=== PATIENT | female | born 1950 | race Caucasian/White ===

== ENCOUNTER 2020-01-21 01:24 | Day surgery (SDC) | payer MEDICARE, SELFPAY ==
[2020-01-16 10:26] VITALS: BMI 39.8
[2020-01-21] MEDS: LACTATED RINGERS 1,000 ML 150 ML IV CONT (09:39)
[2020-01-21 09:40] VITALS: BP 146/93; PULSE 72; RESP 16; TEMP 36.4; O2SAT 98; BMI 41.7
--- NOTE | 2020-01-21 09:53 | WPDANESEPPF ---
Anes - Initial Pre Proc Eval Procedure: Operation Date: 01/21/20 10:00 Proposed Procedures p Screening Colonoscopy - Chalino Oquendo MD Date/Time: 01/21/20 09:53 Surgeon: Chalino Oquendo MD Pre Op Diagnosis: family hx colon polyps and colon CA Patient Data Age: 69 Gender: F Height: 5 ft 6 in Weight: 117.3 kg Last Vital Signs Temp 97.6 F 01/21/20 09:40 Pulse 72 01/21/20 09:40 Resp 16 01/21/20 09:40 BP 146/93 H 01/21/20 09:40 Pulse Ox 98 01/21/20 09:40 Allergies Allergy/AdvReac Type Severity Reaction Status Date / Time povidone-iodine Allergy Intermediate Hives Verified 01/21/20 09:26 latex Allergy Unknown Hives Verified 01/21/20 09:26 Penicillins Allergy Unknown Hives Verified 01/21/20 09:26 tree nut Allergy Unknown Swelling Verified 01/21/20 09:26 of Lip/Tongue/Throat morphine AdvReac Unknown Nausea Verified 01/21/20 09:26 Home Medications Medication Instructions Recorded Confirmed Type zolpidem 10 mg PO PRN PRN 01/16/20 01/21/20 History esomeprazole magnesium [Nexium 20 mg PO DAILY 01/21/20 01/21/20 History 24HR] Patient hx anesthesia problems: none Family hx anesthesia problems: none PMFSH Past Medical History Medical History (Updated 01/21/20 @ 09:53 by Dmitry Serrano MD) Arthritis Factor 5 Leiden mutation, heterozygous GERD (gastroesophageal reflux disease) Morbid obesity Family History Family History (Updated 09/19/18 @ 09:22 by DOCTOR UNKNOWN) Mother Hypertension Family history of cardiovascular disease Father Patient's father is , Onset Age: 84 Family history of cardiac disorder Carcinoma of colon Sibling Family history of atrial fibrillation Social History Social History Smoking status: Never smoker Second hand tobacco smoke exposure: No Alcohol intake: current Anes - Eval Final PreProcedure Day of Procedure 01/21/20 09:53 Patient weight: morbidly obese Heart: regular rate and rhythm Lungs: clear to auscultation Airway: Mallampati scale class II Neurological: alert and oriented Last oral intake: >/= 8 hours ASA classification: III Emergent: no Anesthetic plan: proceed Anesthesia type and monitoring: general GIVS and standard monitoring Informed Consent: The patient's anesthetic plan and its attendant risks and benefits were discussed with the patient/family/POA. Questions were solicited and answers provided to the satisfaction of the patient/family/POA.
--- NOTE | 2020-01-21 09:59 | WPDGICN ---
Assessment and Plan Assessment and plan (1) History of colon polyps: Code(s): Z86.010 - Personal history of colonic polyps Status: Acute Assessment and Plan: Patient reports having had colon polyps in the past most recent colonoscopy 5 years ago revealed no polyps. (2) Family history of colon cancer requiring screening colonoscopy: Code(s): Z80.0 - Family history of malignant neoplasm of digestive organs Status: Acute Assessment and Plan: Patient's father and paternal uncles have had colon cancer. Screening colonoscopy is advised now and every 5 years. GI Consult Note Consult date/time: 01/21/20 09:59 HPI: Edie Carpenter is a 69 year old female Seen in evaluation at the request of Dr. Worley. Patient presents for screening colonoscopy. Patient has a history of colon polyps in the past. Family history is significant her father and uncles have with colon cancer. Patient reports that her current weight appetite bowel movements are normal. She denies abdominal pain. She denies blood in her stools. Her bowel habits are regular. Review of Systems Review of Systems: All systems reviewed & are unremarkable except as noted in HPI and below PMFSH Past Medical History Medical History Arthritis Factor 5 Leiden mutation, heterozygous GERD (gastroesophageal reflux disease) Morbid obesity Family History Family History (Updated 09/19/18 @ 09:22 by DOCTOR UNKNOWN) Mother Hypertension Family history of cardiovascular disease Father Patient's father is , Onset Age: 84 Family history of cardiac disorder Carcinoma of colon Sibling Family history of atrial fibrillation Social History Social History Smoking status: Never smoker Second hand tobacco smoke exposure: No Alcohol intake: current Meds Home Medications and Allergies Home Medications Medication Instructions Recorded Confirmed Type zolpidem 10 mg PO PRN PRN 01/16/20 01/21/20 History esomeprazole magnesium [Nexium 20 mg PO DAILY 01/21/20 01/21/20 History 24HR] Allergies Allergy/AdvReac Type Severity Reaction Status Date / Time povidone-iodine Allergy Intermediate Hives Verified 01/21/20 09:26 latex Allergy Unknown Hives Verified 01/21/20 09:26 Penicillins Allergy Unknown Hives Verified 01/21/20 09:26 tree nut Allergy Unknown Swelling Verified 01/21/20 09:26 of Lip/Tongue/Throat morphine AdvReac Unknown Nausea Verified 01/21/20 09:26 Vital Signs Vital Signs - 24 hr 01/21/20 09:40 Temperature 36.4 C Pulse Rate 72 Respiratory Rate 16 Blood Pressure 146/93 H Pulse Oximetry 98 Exam Narrative: Exam Narrative: Physical exam reveals her to be alert. Vital signs stable. HEENT exam unremarkable. Lungs are clear to auscultation and percussion. Heart is without murmur or extra sounds. Abdominal exam bowel sounds are present soft nontender with no organomegaly. Digital external rectal exam normal.
[2020-01-21 10:20] VITALS: BP 138/81; PULSE 70; RESP 18; O2SAT 100
[2020-01-21 10:30] VITALS: BP 124/78; PULSE 69; RESP 19; O2SAT 98
[2020-01-21 10:40] VITALS: BP 125/78; PULSE 58; RESP 18; O2SAT 100
== END 2020-01-21 10:55 | disposition home or self-care (01) ==
PROVIDERS: PCP Family Medicine; Visit Provider Internal Medicine Gastroenterology
PROC: 0DJD8ZZ Inspection of Lower Intestinal Tract, Via Natural or Artificial Opening Endoscopic (ICD-10-PCS; CPT 45378; principal; 2020-01-21 10:00)
DX: Z12.11 Encounter for screening for malignant neoplasm of colon (principal); K57.30 Diverticulosis of large intestine without perforation or abscess without bleeding; K64.8 Other hemorrhoids; Z86.010 Personal history of colon polyps; Z80.0 Family history of malignant neoplasm of digestive organs; K21.9 Gastro-esophageal reflux disease without esophagitis; D68.51 Activated protein C resistance; M19.90 Unspecified osteoarthritis, unspecified site; E66.01 Morbid (severe) obesity due to excess calories; Z68.41 Body mass index [BMI] 40.0-44.9, adult
CPT/HCPCS: G0105; J2704; J7120

== ENCOUNTER 2022-05-18 08:35 | Outpatient (CLI) | payer MEDICARE, SELFPAY ==
--- NOTE | ~2022-05-18 | US_ITS ---
US venous doppler [facility] DATE: 05/18/2022 09:56 INDICATION: Localized edema TECHNIQUE: Real-time and color flow imaging and Doppler analysis of the veins of the lower extremitie s COMPARISON: None FINDINGS: Visualization of the distal femoral veins and calf veins was limited due to body habitus. The greater saphenous veins are patent. No deep venous thrombosis is evident in the common femoral ve ins, proximal to mid femoral veins or popliteal veins. Bilateral popliteal cyst. Right greater saphenous vein: Proximal: No reflux; 7.2 mm diameter Mid: No reflux; 4.8 mm diameter Distal: Approximately 2 seconds reflux duration; 0.9 mm vein diameter Right lesser saphenous: Proximal: No reflux duration; 2.2 mm diameter Distal colon no reflux duration; 1.9 mm diameter Left greater saphenous: Proximal: 1.5 seconds reflux duration; 7.9 mm in diameter Mid: No reflux; 6.4 mm vein diameter Distal: No reflux; 2.7 mm vein diameter Left lesser saphenous: Proximal: No reflux; 3.0 mm vein diameter Distal: No reflux duration; 3.5 mm in diameter IMPRESSION: Limited visualization of the distal femoral and calf veins due to body habitus; no deep v enous thrombosis is detected otherwise Bilateral popliteal cysts Approximately 2 sections reflux duration in distal greater saphenous vein Approximately 1.5 seconds reflux duration in proximal left greater saphenous vein Reviewed, dictated and finalized at [facility]. Reviewed, dictated and finalized at [facility]. IMPRESSION: Limited visualization of the distal femoral and calf veins due to b mariya habitus; no deep venous thrombosis is detected otherwise Bilateral popliteal cysts Approximately 2 sections reflux duration in distal greater saphenous vein Approximately 1.5 seconds reflux duration in proximal left greater saphenous ve in
== END 2022-05-18 08:36 | disposition home or self-care (01) ==
LOC: ANHIMG 08:38
PROVIDERS: PCP Family Medicine; Visit Provider Nurse Practitioner Family
DX: R60.0 Localized edema (principal); I87.2 Venous insufficiency (chronic) (peripheral); M71.21 Synovial cyst of popliteal space [Baker], right knee; M71.22 Synovial cyst of popliteal space [Baker], left knee
CPT/HCPCS: 93970

== ENCOUNTER 2022-06-27 10:07 | Emergency (ER) | payer MEDICARE, SELFPAY ==
[2022-06-27 10:24] VITALS: BP 130/100; PULSE 98; RESP 22; TEMP 36.4; O2SAT 99
--- NOTE | 2022-06-27 10:25 | ECG_ITS ---
Measurements Intervals [place] Rate: 97 P: 56 OK: 148 QRS: 90 QRSD: 77 T: -76 QT: 377 QTc: 481 Interpretive Statements SINUS RHYTHM POSSIBLE RIGHT VENTRICULAR CONDUCTION DELAY [RSR (QR) IN V1/V2] MODERATE T-WAVE ABNORMALITY, CONSIDER ANTEROLATERAL ISCHEMIA [-0.1+ mV T WAVE IN V3-V6] MODERATE T-WAVE ABNORMALITY, CONSIDER INFERIOR ISCHEMIA [-0.1+ mV T WAVE IN II/aVF] ABNORMAL ECG Electronically Signed On 06-29-2022 9:32:44 CDT by Silas Slade M.D.
--- NOTE | 2022-06-27 10:44 | ED.CHESTPAIN ---
HPI - Chest Pain General Chief Complaint: Chest Pain Stated Complaint: shortness of breath, chest pain Time Seen by Provider: 06/27/22 10:26 Source: patient, family, RN notes reviewed and old records reviewed Mode of arrival: wheelchair (Since arrival) Limitations: no limitations History of Present Illness HPI narrative: 71-year-old female who presents to [facility], accompanied by sister who just returned from vacation last night, with complaints of increasing shortness of breath for the past week with increase in her symptoms since yesterday. Patient reports that she has chest pain to left chest region under her left breast with lightheadedness when sitting up and sweaty. Patient states that she has essentially been lying in bed for the past week and she has not eaten any thing since Sunday. Patient reports that she has Factor V Leiden, has never had blood clot but carries gene. Patient reposts that she is nauseated and also diaphoretic when sitting patient up to listen to lungs posteriorly.Patient has chronic lymphedema to lower extremities and noted pedal edema. MD complaint: chest pain and other (dyspnea,) Onset (ago): week(s) (1) Timing of current episode: other (symptoms increased since yesterday) Onset: other Pain location: left chest Exacerbating factors: exertion Treatment prior to arrival: none Risk Factors Pulmonary embolism risk factors: clotting disorder, immobilization and morbid obesity Related Data Home Medications Medication Instructions Recorded Confirmed esomeprazole magnesium 20 mg 20 mg PO DAILY 01/21/20 05/02/22 capsule,delayed release (Nexium 24HR) Allergies Allergy/AdvReac Type Severity Reaction Status Date / Time povidone-iodine Allergy Intermediate Hives Verified 06/27/22 11:27 latex Allergy Unknown Hives Verified 06/27/22 11:27 Penicillins Allergy Unknown Hives Verified 06/27/22 11:27 tree nut Allergy Unknown Swelling Verified 06/27/22 11:27 of Lip/Tongue/Throat morphine AdvReac Unknown Nausea Verified 06/27/22 11:27 Review of Systems Review of Systems: CONSTITUTIONAL: Denies fever, chills, or sweats. EYES: Denies visual changes, redness, or discharge. ENT: Denies rhinorrhea, congestion, sore throat, or otalgia. CARDIOVASCULAR: Positive for chest pain, palpitations, or edema. RESPIRATORY: positive for cough or dyspnea. GASTROINTESTINAL: Denies abdominal pain, positive for nausea,no vomiting, or diarrhea. GENITOURINARY: Denies dysuria or hematuria. SKIN: Denies rash or itching. MUSCULOSKELETAL: Denies back pain,positive for bilateral knee joint pain, or myalgia. NEUROLOGIC: Denies headache, numbness, or weakness. PSYCHIATRIC: Denies anxiety or depression. 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 report Stomach ulcer Venous insufficiency Surgical History Surgical History S/P ACL reconstruction Left ACL reconstruction S/P ankle ligament repair Left Ankle (per patient) Family History Family History Mother Hypertension Family history of cardiovascular disease Father Patient's father is , Onset Age: 84 Family history of cardiac disorder
== END 2022-06-27 10:51 | disposition short-term general hospital (02) ==
PROVIDERS: Emergency Provider Registered Nurse
DX: R07.9 Chest pain, unspecified (principal); R06.02 Shortness of breath; R94.31 Abnormal electrocardiogram [ECG] [EKG]; K21.9 Gastro-esophageal reflux disease without esophagitis; E66.01 Morbid (severe) obesity due to excess calories; Z68.41 Body mass index [BMI] 40.0-44.9, adult; M19.90 Unspecified osteoarthritis, unspecified site; D68.51 Activated protein C resistance
CPT/HCPCS: 93005; 99213; G0463

== ENCOUNTER 2022-06-27 11:17 | Emergency (ER) | payer MEDICARE, SELFPAY ==
[2022-06-27] VITALS (35 sets, daily range): BP systolic 105–155; BP diastolic 79–130; PULSE 90–106; RESP 14–29; TEMP 36.5; O2SAT 84–100
--- NOTE | 2022-06-27 | ECHO_ITS ---
Patient Info Name: Edie Carpenter Age: 71 years : 1950 Gender: Female Ht: 66 in Wt: 260 lbs BSA: 2.40 m2 HR: 98 bpm BP: 119 / 83 mmHg Heart Rhythm: Sinus Rhythm Technical Quality: Fair Exam Date: 06/27/2022 3:20 PM Exam Location: [facility] Card Pulmonary Patient Status: Emergency Admit Date: 06/27/2022 Staff Ordering Physician: Elke Mejia MD Program Aide: Rhonda Kemp RDCS Attending Provider: Elke Mejia MD Referring Physician: Roberto HENDRIX; Exam Type: CA echo dop color flow w con Study Info Indications - DVT Complete two-dimensional, color flow and Doppler transthoracic echocardiogram is performed with contrast to opacify the left ventricle and to improve the deliniation of the left ventricle endocardial borders. Contrast/Agitated Saline Contrast/Ag. Saline: Definity Amount: 3.00 ml Administered By: Rhonda Kemp RDCS Existing IV Access: Yes IV Access Condition: patent with no signs of infiltration Summary 1. Left ventricular chamber dimension is normal. 2. Left ventricular systolic function is normal, estimated at 65-70%. 3. There is mildly increased left ventricular wall thickness. 4. The left ventricular diastolic function is abnormal. 5. 'D-shaped' septum in both systole and diastole consistent with right ventricular volume and pressure overload. 6. Right ventricular chamber dimension is severely enlarged. 7. Right ventricular systolic function is reduced. 8. Right atrial chamber dimension is mildly enlarged. 9. There is mild aortic valve regurgitation. 10. There is mild mitral valve regurgitation. 11. There is mild tricuspid valve regurgitation. 12. Severe pulmonary hypertension, estimated pulmonary arterial systolic pressure is 76 mmHg. 13. There is mild pulmonic regurgitation. 14. There is small pericardial effusion. Left Ventricle Left ventricular chamber dimension is normal. Left ventricular systolic function is normal, estimated at 65-70%. There is mildly increased left ventricular wall thickness. The left ventricular diastolic function is abnormal. 'D-shaped' septum in both systole and diastole consistent with right ventricular volume and pressure overload. Right Ventricle Right ventricular chamber dimension is severely enlarged. Right ventricular systolic function is reduced. Left Atria Left atrial chamber dimension is normal. Right Atria Right atrial chamber dimension is mildly enlarged. Atrial Septum Intact interatrial septum visualized by color flow imaging. Aortic Valve The aortic valve is trileaflet. There is mild aortic valve sclerosis. There is mild aortic valve stenosis with a peak velocity of 113.67 cm/s, mean gradient of 2 mmHg, and aortic valve area of 2.43 cm2. There is mild aortic valve regurgitation. Pulmonic Valve The pulmonic valve is normal. There is no pulmonic valve stenosis. There is mild pulmonic regurgitation. Mitral Valve The mitral valve has normal leaflets. There is no mitral valve stenosis. There is mild mitral valve regurgitation. Tricuspid Valve The tricuspid valve leaflets are normal. There is no significant tricuspid valve stenosis. There is mild tricuspid valve regurgitation. Severe pulmonary hypertension, estimated pulmonary arterial systolic pressure is 76 mmHg. Pericardium/Pleural The pericardium appears normal. There is small pericardial effusion. Inferior Vena Cava Normal in
--- NOTE | ~2022-06-27 | CT_ITS ---
EXAMINATION: CTA chest PE protocol DATE: 06/27/2022 13:07 CDT INDICATION: Shortness of breath and chest pain. Elevated d-dimer. TECHNIQUE: Computed tomographic angiography (CTA) of the chest was performed with 100 mL Omnipaque-35 0 intravenous contrast. The dose-length product was 698.35 mGy-cm. Maximum intensity projection 3D-re constructions of the aorta and other arteries were constructed by the technologist on a separate work station. COMPARISON: Chest dated 06/27/2022. FINDINGS: Study is technically adequate. There is large clot burden with pulmonary emboli involving t he main pulmonary arteries as well is bilateral segmental and subsegmental pulmonary arteries. Border line heart size. No significant pleural or pericardial effusion. Moderate size hiatal hernia. No thor acic lymphadenopathy. There is atherosclerosis of the aorta without aneurysm or dissection. No focal airspace disease. No pneumothorax. No endobronchial lesions. There is right upper lobe atelectasis. M ild thoracic spondylosis. IMPRESSION: 1. Bilateral pulmonary embolism with large clot burden involving the main pulmonary arteries as well as bilateral segmental and subsegmental pulmonary arteries. Dr. Charanjit Garcia discussed with Dr. Elke Mejia MD at 06/27/2022 13:08 CDT. Reviewed, dictated and finalized at [facility]. IMPRESSION: 1. Bilateral pulmonary embolism with large clot burden involving the main pulmo nary arteries as well as bilateral segmental and subsegmental pulmonary arterie s. Dr. Charanjit Garcia discussed with Dr. Elke Mejia MD at 06/27/2022 13:08 CDT.
--- NOTE | ~2022-06-27 | US_ITS ---
EXAMINATION:US venous doppler LE BI INDICATION:Evaluate for DVT TECHNIQUE: Multiple grayscale, color flow and Doppler images of the right and left lower extremity de ep venous systems were obtained and reviewed. COMPARISON:No prior studies for comparison. FINDINGS: The common femoral, superficial femoral and popliteal veins demonstrate normal respiratory variation, augmentation and compressibility. Color flow is also seen within the posterior tibial, pe roneal, greater saphenous and profunda veins. IMPRESSION: 1: No lower extremity deep venous thrombosis. Reviewed, dictated and finalized at location [facility].
--- NOTE | ~2022-06-27 | XR_ITS ---
EXAMINATION: XR chest 2V 06/27/2022 11:49 INDICATION: Extremely shortness of breath PROCEDURE: 2 view chest COMPARISON: 09/20/2018 FINDINGS: The lungs are clear. The cardiomediastinal silhouette is within normal limits. There are no pleural effusions. There is no pneumothorax suspected. There is chronic atelectasis in the right midlung. IMPRESSION: 1: NO ACUTE CARDIOPULMONARY DISEASE. Reviewed, dictated and finalized at location [facility].
--- NOTE | 2022-06-27 11:19 | ECG_ITS ---
Measurements Intervals [place] Rate: 102 P: 50 MS: 148 QRS: 148 QRSD: 76 T: -76 QT: 352 QTc: 459 Interpretive Statements SINUS TACHYCARDIA INDETERMINATE AXIS PATTERN CONSISTENT WITH PULMONARY DISEASE MODERATE T-WAVE ABNORMALITY, CONSIDER ANTERIOR ISCHEMIA [-0.1+ mV T WAVE IN V3/V4] MODERATE T-WAVE ABNORMALITY, CONSIDER INFERIOR ISCHEMIA [-0.1+ mV T WAVE IN II/aVF] ABNORMAL ECG NO PREVIOUS ECG AVAILABLE FOR COMPARISON Electronically Signed On 06-27-2022 12:11:42 CDT by Silas Slade M.D.
--- NOTE | 2022-06-27 11:34 | ED.SOB ---
HPI - SOB/Dyspnea General Chief Complaint: Shortness of Breath/Dyspnea Stated Complaint: sob,cp Time Seen by Provider: 06/27/22 11:34 History of Present Illness HPI Narrative: The patient is a 71-year-old female with a history of acid reflux, lower extremity lymphedema, factor V Leiden deficiency presenting to the emergency department for evaluation of chest pain and shortness of breath. Patient states that she has been having chest pain and shortness of breath worsening over the past week. Patient does report recent car travel to [facility] but denies any recent surgery or immobility. She denies history of blood clots in the past. Patient states she and her sister have a history of factor V Leiden deficiency, she states she is not on any current anticoagulation but did take 2 baby aspirin daily over the past 4 days. Related Data Home Medications Medication Instructions Recorded Confirmed esomeprazole magnesium 20 mg 20 mg PO DAILY 01/21/20 05/02/22 capsule,delayed release (Nexium 24HR) Allergies Allergy/AdvReac Type Severity Reaction Status Date / Time povidone-iodine Allergy Intermediate Hives Verified 06/27/22 11:27 latex Allergy Unknown Hives Verified 06/27/22 11:27 Penicillins Allergy Unknown Hives Verified 06/27/22 11:27 tree nut Allergy Unknown Swelling Verified 06/27/22 11:27 of Lip/Tongue/Throat morphine AdvReac Unknown Nausea Verified 06/27/22 11:27 Review of Systems Review of Systems: CONSTITUTIONAL: Denies fever, chills, or sweats. EYES: Denies visual changes, redness, or discharge. ENT: Denies rhinorrhea, congestion, sore throat, or otalgia. CARDIOVASCULAR: Reports left-sided chest pain without palpitations, reports chronic lymphedema RESPIRATORY: Denies cough, reports shortness of breath GASTROINTESTINAL: Denies abdominal pain, reports nausea GENITOURINARY: Denies dysuria or hematuria. SKIN: Denies rash or itching. MUSCULOSKELETAL: Denies back pain, joint pain, or myalgia. NEUROLOGIC: Denies headache, numbness, or weakness. 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 report Stomach ulcer Venous insufficiency Surgical History Surgical History S/P ACL reconstruction Left ACL reconstruction S/P ankle ligament repair Left Ankle (per patient) Family History Family History Mother Hypertension Family history of cardiovascular disease Father Patient's father is , Onset Age: 84 Family history of cardiac disorder Carcinoma of colon Sibling Family history of atrial fibrillation Other Arthritis Renal cancer Social History Social History (Updated 06/27/22 @ 19:34 by Elke Stauffer NP) Smoking status: Never smoker Second hand tobacco smoke exposure: No Alcohol intake: current Substance use type: does not use Gender identity (if verbalized by the patient): Female Exam Narrative: GENERAL: Awake, alert, conversant HEAD: Normocephalic, atraumatic. EYES: PERRLA and EOMI. ENT: Nares clear, no rhinorrhea or epistaxis. Mucous membranes moist. NECK: Supple. CHEST: No respiratory distress, breathing even and non labored HEART: Tachycardic rate, sinus rhythm ABDOMEN:Non distended, non tender EXT
[2022-06-27 11:39] LABS: Basophils Percent Auto 0.5 % (0.2-1.2); Eosinophils Percent Auto 0.4 % (0-4.4); Hematocrit 49.5 % (37.0-47.0); Immature Granulocyte Absolute 0.02 K/mm3 (0.00-0.031); Immature Granulocyte Percent A 0.3 % (0-0.5); Immature Platelet Fraction Pct 1.9 % (0.9-11.2); Lymphocytes Absolute Auto 2.43 K/mm3 (0.9-3.2); Mean Corpuscular HGB Conc 32.3 g/dl (32-36); Mean Corpuscular Hemoglobin 29.2 pg (26-34); Mean Corpuscular Volume 90.3 fl (80-100); Mean Platelet Volume 9.1 fl (7.4-10.4); Monocytes Absolute Auto 0.4 K/mm3 (0.1-0.6); Monocytes Percent Auto 5.6 % (2.6-8.5); Neutrophils Absolute Auto 4.9 K/mm3 (1.3-6.7); Neutrophils Percent Auto 62.2 % (45.5-73.1); Platelet Count Result 150 k/mm3 (150-375); Red Blood Count 5.48 M/mm3 (4.2-5.4); Red Cell Distribution Width 13.5 % (11.5-14.5); White Blood Count 7.8 K/mm3 (4.5-10.0)
[2022-06-27 11:48] LABS: Alanine Aminotransferase 18 U/L (6-35); Albumin Level 4.2 g/dL (3.5-5.1); Alkaline Phosphatase 90 U/L (38-126); Anion Gap 9 mmol/L (8-16); Aspartate Amino Transferase 22 U/L (14-36); Bilirubin,Total 0.7 mg/dL (0.2-1.3); Blood Urea Nitrogen 13 mg/dL (7-17); Calcium 8.9 mg/dL (8.4-10.2); Carbon Dioxide 27 mmol/L (22-30); Chloride 103 mmol/L (98-107); Estimated CRCL calculation 56 ml/min; Estimated Glomerular Filt Rate 49; Glucose 129 mg/dL (65-110); Lipase 31 U/L (23-300); Potassium 3.8 mmol/L (3.4-5.0); Sodium 139 mmol/L (137-145)
[2022-06-27 11:50] LABS: Prothrombin Time 13.2 Seconds (11.1-14.7)
[2022-06-27 11:51] LABS: Partial Thromboplastin Time 27.5 SECONDS (22.3-36.8)
[2022-06-27] MEDS: ASPIRIN 325 MG TABLET PO (11:56)
[2022-06-27] MEDS: ONDANSETRON INJ 4 MG/2 ML VIAL IV PUSH (11:57)
[2022-06-27] MEDS: SODIUM CHLORIDE 0.9% IV 500 ML 999 ML IV CONT (11:59)
[2022-06-27 12:07] LABS: Troponin I 0.084 ng/mL (0.000-0.034)
[2022-06-27 12:20] LABS: D Dimer 6.26 ug/mL (<0.48)
[2022-06-27 12:43] LABS: NT Pro B Type Natriuretic Pept 11500 pg/mL (5-100)
[2022-06-27 12:48] LABS: Alveolar/Arterial O2 Gradient 46.3 mmHg; Base Excess ABG -3.1 mEq/l (+/-2.0); Carboxyhemoglobin 0.5 % THb (0-2.0); Fractional Inspired Oxygen 21 %; HCO3 ABG 21.2 mEq/l (22.0-26.0); Methemoglobin ABG 0.2 %THb (0-1.5); Oxygen Content ABG 19.5 %vol (16.0-22.0); Oxyhemoglobin 88.6 % THb (90.0-100.0); PCO2 ABG 36.1 mmHg (35.0-45.0); PO2 ABG 60.2 mmHg (80.0-100.0); PO2 FiO2 Ratio Arterial Blood 2.87 %; Reduced Hemoglobin 10.7 %THb (0-5.0); Total Hemoglobin 15.7 g/dL (12.0-18.0); pH ABG 7.387 (7.350-7.450)
[2022-06-27 12:49] LABS: Device ROOM AIR; Modified Allen's Test Pass; Site Drawn LEFT RADIAL
[2022-06-27] MEDS: HEPARIN SOD/D5W 100 UNITS/ML 25,000 UNITS/250 ML BAG 15 UNITS IV CONT (14:36)
[2022-06-27] MEDS: HEPARIN SODIUM 5,000 UNITS/ML VIAL 6500 UNITS IV PUSH (14:36)
[2022-06-27] MEDS: PERFLUTREN LIPID MICROSPHERES 1.5 ML VIAL DILUTED TO 10 ML TOTAL VOLUME IV PUSH (15:49)
--- NOTE | 2022-06-27 15:49 | IVDEFINITY ---
Prior to administration of IV Definity the patient was educated on the risks and benefits of the imaging enhancing agent including potential adverse side effects. The patient verbalized understanding. Allergies were verified. No exclusion criteria were identified and at least one of the following inclusion criteria were met: 1) physician request, 2) patient technically difficult to image (per the [place] [employer] guidelines of two or more segments not discernable within the apical view), or 3) questionable left ventricular function. ?
[2022-06-27 16:38] LABS: SARS-CoV-2 RNA PCR Negative
[2022-06-27 18:53] LABS: Troponin I 0.062 ng/mL (0.000-0.034)
--- NOTE | 2022-06-27 19:25 | PC.NURSE ---
[facility]
[2022-06-27 19:33] LABS: Partial Thromboplastin Time > 200.0 SECONDS (22.3-36.8)
--- NOTE | 2022-06-27 19:41 | PC.NURSE ---
As requested, I Informed Ros at the access center that the patient has left [facility].
== END 2022-06-27 19:32 | disposition short-term general hospital (02) ==
PROVIDERS: Emergency Provider Emergency Medicine
DX: I26.99 Other pulmonary embolism without acute cor pulmonale (principal); I27.21 Secondary pulmonary arterial hypertension; I50.9 Heart failure, unspecified; R79.89 Other specified abnormal findings of blood chemistry; Z20.822 Contact with and (suspected) exposure to COVID-19; K21.9 Gastro-esophageal reflux disease without esophagitis; I89.0 Lymphedema, not elsewhere classified; D68.51 Activated protein C resistance; M17.10 Unilateral primary osteoarthritis, unspecified knee; M19.019 Primary osteoarthritis, unspecified shoulder; Z86.010 Personal history of colon polyps; E66.01 Morbid (severe) obesity due to excess calories; Z68.41 Body mass index [BMI] 40.0-44.9, adult; I87.2 Venous insufficiency (chronic) (peripheral); R00.0 Tachycardia, unspecified; R94.31 Abnormal electrocardiogram [ECG] [EKG]
CPT/HCPCS: 36415; 36600; 71046; 71275; 80053; 82375; 82805; 83050; 83690; 83880; 84484; 85025; 85055; 85380; 85610; 85730; 93005; 93970; 96361; 96365; 96366; 96368; 96375; 99291; A9270; C8929; C9803; J1644; J2405; J7040; Q9957; Q9967; U0003; U0005

== ENCOUNTER 2022-09-28 14:22 | Emergency (ER) | payer MEDICARE, SELFPAY ==
[2022-09-28 14:33] VITALS: BP 141/92; PULSE 109; RESP 20; TEMP 36.4; O2SAT 98
--- NOTE | 2022-09-28 14:37 | ED.UPPEXIN ---
HPI - Extremity Injury (Upper) General Chief Complaint: Extremity Injury, Upper Stated Complaint: lt arm injury Time Seen by Provider: 09/28/22 14:37 Source: patient, RN notes reviewed and old records reviewed Mode of arrival: ambulatory Limitations: no limitations History of Present Illness HPI narrative: 71 year old female who presents to express care with complaints of increasing discomfort to her left shoulder especially with any movement. Patient reports that she has been keeping her left arm elevated with a pillow which does seem to help the pain. 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 Patient has pain to her left shoulder which radiates down her upper arm to her elbow with increase with any any use. Patient requesting sling for some support but cautioned patient only to use at intermittent intervals till seen by ortho to prevent frozen shoulder. Patient is on blood thinner from previous PE and Factor 5 can not take NSAIDS. Handedness: left Severity scale (1-10): 3 Exacerbating factors: movement of extremity Treatments prior to arrival: other (rest, heat and keeping elevated) Related Data Home Medications Medication Instructions Recorded Confirmed esomeprazole magnesium 20 mg 20 mg PO DAILY 01/21/20 09/28/22 capsule,delayed release (Nexium 24HR) Allergies Allergy/AdvReac Type Severity Reaction Status Date / Time povidone-iodine Allergy Intermediate Hives Verified 09/28/22 14:30 latex Allergy Unknown Hives Verified 09/28/22 14:30 Penicillins Allergy Unknown Hives Verified 09/28/22 14:30 tree nut Allergy Unknown Swelling Verified 09/28/22 14:30 of Lip/Tongue/Throat morphine AdvReac Unknown Nausea Verified 09/28/22 14:30 Review of Systems Review of Systems: CONSTITUTIONAL: Denies fever, chills, or sweats. CARDIOVASCULAR: Denies chest pain, palpitations, chronic lower extremity lymph edema RESPIRATORY: Denies cough or any dyspnea. SKIN: Denies rash or itching. Denies lacerations or abrasions MUSCULOSKELETAL: Reports increasing pain to left shoulder wih radiation to back of upper arm to her elbow NEUROLOGIC: Denies numbness, or weakness. All systems reviewed & are unremarkable except as noted in HPI and below PMFSH Past Medical History Medical History Ankle fracture Ankle pain Arthritis BMI greater than 40 Chest wall contusion Degenerative joint disease of knee DJD of left shoulder DJD of shoulder Encounter for other screening for malignant neoplasm of breast Esophageal reflux Factor 5 Leiden mutation, heterozygous Family history of colon cancer requiring screening colonoscopy GERD (gastroesophageal reflux disease) History of adverse reaction to anesthesia History of colon polyps Insomnia Lower extremity edema Morbid obesity Nausea & vomiting Pes planus of both feet Right fibular fracture Right knee pain Rotator cuff tear Bilateral shoulders per pt. report Stomach ulcer Venous insufficiency Surgical History Surgical History S/P ACL reconstruction Left ACL reconstruction S/P ankle ligament repair Left Ankle (per patient) Family History Family History Mother Hypertension Family history of cardiovascular disease Father Patient's father is , Onset Age: 84 Family history of cardiac disorder Carcinoma of colon Sibling Family history of atrial fibrillation Other Arthritis Renal cancer Social History Social History Smoking status: Never smoker Second hand tobacco smoke exposure: No Alcohol intake: current Substance use type: does not use Gender identity (if verbalized by the patient): Female Comments At time of signature, agree with nursing pas
== END 2022-09-28 15:09 | disposition home or self-care (01) ==
PROVIDERS: Emergency Provider Registered Nurse; PCP Family Medicine
DX: M25.512 Pain in left shoulder (principal); K21.9 Gastro-esophageal reflux disease without esophagitis; E66.01 Morbid (severe) obesity due to excess calories; Z68.41 Body mass index [BMI] 40.0-44.9, adult; M19.012 Primary osteoarthritis, left shoulder; D68.51 Activated protein C resistance
CPT/HCPCS: 99213; A4565; G0463

== ENCOUNTER 2022-10-24 12:00 | Outpatient (RCR) | payer MEDICARE, SELFPAY ==
--- NOTE | 2022-09-14 11:58 | PTOPEVAL1 ---
Assessment and note entered by Riya Vanessa, PT Evaluation Information Assessment Status Evaluation Diagnosis B LE lymphedema Onset November 2021 Subjective Information pt reports always have had muscular legs, due to being active, but with covid and decreased activity have gained about 60# in the past year and not doing activity for fitness; seeing ortho dr about knee pain and L shoulder pain--plans for L total shoulder replacement and both knees; she is wanting to have L shoulder replaced first, then do the knees; limited walking 15-20 minutes due to knee pain and SOB; Reported Pain Level Pain Score Self Report Additional Pain Score Comments pain range in legs 3-6/10: R > L pain; both knees hurt; reported tolerance of standing/walking 15- 20 min then have to sit down Assessment PT Clinical Summary Argenis has the diagnosis of B LE lymphedema. Her medical history includes multiple LE surgeries and fractures, with venous insufficiency and recent aortic and cardiac emboli with surgical removal. She is on blood thinners. Also has knee arthritis and is planning for TKR in the future. With the evaluation, she has a combination of lipedema-lymphedema over R and L legs, with increased adipose tissue over lateral hips and thighs, dorsum of feet swelling; there is not any fibrotic tissue over her legs and skin integrity is good. Skilled PT services are indicated for lymphedema treatment to both legs: compression reduction garments, manual lymph drainage, education for self care, self MLD, home compression pump, and recommendation for compression garments for her to obtain for chemical cell changer care of her edema. Plan of Care Interventions Intermittent Compression,Lymphedema Compression Pump ,Manual Lymph Drainage,Patient/Caregiver Education, Therapeutic Activities PT Services Indicated Yes Treatment Frequency and 2-3 x/wk for 6 weeks Duration These treatments will address the objective and functional deficits as defined above. The patient will be advanced safely and appropriately in order for the patient to progress towards his/her prior level of function. Additional exercises will be introduced and as well as a comprehensive home exercise program upon discharge, if needed, ?to ensure carryover of functional gains achieved in the clinic. This treatment plan has been reviewed and agreement upon by the patient.
--- NOTE | 2022-10-25 16:10 | PTOPDC ---
Addendum entered by Riya Vanessa, PT 10/26/22 08:27: Ms. Carpenter continues to have truncal edema and would benefit from a [employer] Intermittent Compression pump to assist with managing her trunk and LE lymphedema. She has been motivated and following lymphedema instructions and care, but continues to have trunk and LE edema. Original Note: Assessment and note entered by Riya Vanessa, PT Evaluation Information Assessment Status Discharge - Pt Not Present Diagnosis B LE lymphedema Onset November 2021 Subjective Information pt reports she is going out of state until December. Assessment PT Clinical Summary Argenis has received 9 PT sessions, from September 14 to October 24 for B LE lymphedema. The circumferential measurements of her legs have decreased since the initial evaluation, R by 40.6 cm and L by 20 cm. She has compression garments for R and L LE: Mediven plus, 20-30 mmHg calf high garments, size , standard length with closed toes and silicone band top. And Solidea active massage long leggings, size XXXL. She has just received the garments and is indep with donning/doffing and wearing schedule. She also has the reduction kit that she can use at night, with sleeping to manage her lymphedema. Education has been completed for self manual lymph drainage, LE exercises, elevation and self care of her lymphedema. She would benefit from a home intermittent compression pump to help manage her chronic condition. Discharge PT services.
--- NOTE | 2022-11-07 12:50 | PCPTNOTE ---
LATE entry note: on 10-19-22: during PT session, Mrs. Carpenter had a Tactile basic, Entre pump demo for her LE's, 20 minutes at 40 mmHg to her legs. Her truncal measurement: pre op 140 cm and post op 142.5 cm. It is recommended that she receive the home intermittent compression pump with the truncal component to address her truncal edema and facilitate the lymph flow with gentle pressure to her LE's and trunk.
== END 2022-10-26 08:31 | disposition home or self-care (01) ==
LOC: ANHPT 12:00
PROVIDERS: PCP Family Medicine; Visit Provider Nurse Practitioner Family
DX: R60.0 Localized edema (principal)
CPT/HCPCS: 97016; 97140; 97161

== ENCOUNTER 2023-01-15 06:59 | Outpatient (CLI) | payer MEDICARE, SELFPAY ==
--- NOTE | ~2023-01-15 | CT_ITS ---
EXAMINATION: CTA chest PE protocol DATE: 01/15/2023 07:24 INDICATION: Pulmonary embolism follow-up TECHNIQUE: Computed tomography angiography (CTA) of the chest was performed with 100 mL Omnipaque-350 intravenous contrast timed to evaluate the pulmonary arteries. Coronal maximum intensity projection 3D-reconstructions were created by the technologist. Automated exposure control and iterative reconst ruction technique were employed. Exam dose: 544.66 mGy-cm total exam DLP. COMPARISON: 06/27/2022 CT pulmonary scan FINDINGS: Examination is limited due to motion and suboptimal contrast opacification of the pulmonary arteries. No apparent pulmonary artery embolism. Cardiomegaly. Coronary atherosclerosis. Thoracic aortic arch calcification. No thoracic aortic aneury sm or dissection. No hilar or mediastinal mass lesion or lymphadenopathy. No pericardial or pleural effusion. Mild discoid atelectasis or scarring, right upper and lower lobes. No pulmonary consolidation or pulm onary mass lesion is evident. [id number] sliding hiatal hernia. Normal morphology of the adrenal glands. Diffuse idiopathic skeletal hyperostosis of the thoracic spine. No suspicious osteolytic or osteoblas tic lesions are noted. IMPRESSION: Limited examination; no apparent pulmonary embolism; resolution of extensive pulmonary e mbolism and right heart strain since 06/27/2022 Reviewed, dictated and finalized at [facility]. Reviewed, dictated and finalized at [facility]. RVISOR BENZENE REFINING IMPRESSION: Limited examination; no apparent pulmonary embolism; resolution of extensive pulmonary embolism and right heart strain since 06/27/2022
== END 2023-01-15 07:00 | disposition home or self-care (01) ==
PROVIDERS: PCP Family Medicine; Visit Provider Family Medicine
DX: I26.99 Other pulmonary embolism without acute cor pulmonale (principal)
CPT/HCPCS: 71275; Q9967

== ENCOUNTER 2023-05-18 00:15 | Day surgery (SDC) | payer MEDICARE, SELFPAY ==
--- NOTE | 2023-05-09 12:14 | PC.NURSE ---
Report to the Outpatient Waiting Room, entrance under the green pavilion located off [facility], at time _1000 on date __05/18/23 . Planned Procedure Time: __1200 . Time changes happen often and if your time is changed the preop area will call you the afternoon before. - You and your visitor will be asked to self-screen and do not enter if you have any COVID symptoms. - A mask is optional within the hospital at this time. Patients may have clear liquids (water, carbonated beverages, clear teas, apple juice) until 3 hours prior to surgery with a maximum of 20 ounces. - No food from midnight until time of surgery - Infants may have breast milk until 4 hours before surgery, formula 6 hours prior to surgery. - Children will be allowed to drink immediately following surgery. If applicable, please bring a bottle or sippy cup to assist with drinking. Juice, water, soda, and popsicles are readily available. For infants on formula, please bring formula the day of surgery. Pacifiers are allowed. Take the following medications with a SIP of water the morning of surgery: ___NONE DO NOT STOP ANY OF YOUR OTHER PRESCRIPTION MEDICATIONS PRIOR TO SURGERY ?EXCEPT THE FOLLOWING Medications to discontinue per physician XARELTO PER DR LARSON- HAS APPT 05/10/23 WITH HIM. ALL VITAMINS 3 DAYS PRE OP.LAST DOSE 05/16/23 Please no make-up, nail syrian, hairspray, perfume, deodorant, or body powder the day of surgery. No jewelry (including any body piercings) or valuables the day of surgery, leave them at home. Please take a shower or bath the night before, or the morning of, surgery with an antibacterial soap. Wear comfortable, loose fitting clothing. Children are encouraged to wear pajamas. - Jewelry must be removed prior to entering the operating room. Rings and piercings that are not removed may be cut off. - The hospital will not accept responsibility for valuables. - Please leave all valuables, including medications, at home the day of surgery. If you are going home after surgery, a licensed concrete mixer truck driver must drive you home. - NO public transportation without another adult if you receive anesthesia. - We recommend that an adult stay with you for 24 hours following discharge. - We also recommend that you do not drive, make important decision, drink alcoholic beverages, or take any drugs that were not prescribed by your health care provider for at least 24 hours after your discharge time. For Pediatric surgeries, we recommend two adults accompany the child home. Follow any additional instructions given to you from your surgeon. If you or anyone in your household have experienced Covid symptoms in the past week, please notify your surgeon or the nurse liaison at the phone number below for possible testing. Telephone instructions given to __PATIENT and asked if any additional questions and then verbalized understanding. Patient advised to call surgeon office or pre surgery nurse liaison [phone] if any additional questions.
[2023-05-09 12:21] VITALS: BMI 39.1
[2023-05-18] VITALS (11 sets, daily range): BP systolic 115–153; BP diastolic 52–93; PULSE 84–90; RESP 12–16; TEMP 36.6–36.7; O2SAT 92–100
--- NOTE | 2023-05-18 09:56 | WPDANESEPPF ---
Anes - Initial Pre Proc Eval Procedure: Operation Date: 05/18/23 12:00 Proposed Procedures p Left Shoulder Arthroscopic Debridement, Biceps Tenotomy, Subacromial Decompression - Willy León MD Date/Time: 05/18/23 09:56 Surgeon: Willy León MD Pre Op Diagnosis: left rotator cuff arthropathy Patient Data Age: 72 Gender: F Height: 1.7 m Weight: 113.4 kg Allergies Allergy/AdvReac Type Severity Reaction Status Date / Time povidone-iodine Allergy Intermediate Hives Verified 05/18/23 10:19 latex Allergy Unknown Hives Verified 05/18/23 10:19 Penicillins Allergy Unknown Hives Verified 05/18/23 10:19 tree nut Allergy Unknown Swelling Verified 05/18/23 10:19 of Lip/Tongue/Throat morphine AdvReac Unknown Nausea Verified 05/18/23 10:19 Home Medications Medication Instructions Recorded Confirmed Type esomeprazole magnesium 20 mg 20 mg PO DAILY 01/21/20 05/18/23 History capsule,delayed release (Nexium 24HR) zolpidem 10 mg tablet 10 mg PO QHS PRN insomia #90 tabs 02/26/23 05/18/23 Rx rivaroxaban 10 mg tablet (Xarelto) 10 mg PO DAILY #90 tabs 04/10/23 05/18/23 Rx cholecalciferol (vitamin D3) 50 50 mcg PO DAILY 05/09/23 05/18/23 History mcg (2,000 unit) chewable tablet diclofenac sodium 1 % topical gel 2 g topical PRN PRN PAIN. 05/09/23 05/18/23 History (Voltaren Arthritis Pain) Patient hx anesthesia problems: none Family hx anesthesia problems: none Results Review: All pre-operative results and documents have been reviewed as part of the pre-operative evaluation. [facility] Past Medical History Medical History Ankle fracture Ankle pain Arthritis BMI greater than 40 Chest wall contusion Degenerative joint disease of knee DJD of left shoulder DJD of shoulder Encounter for other screening for malignant neoplasm of breast Esophageal reflux Factor 5 Leiden mutation, heterozygous Family history of colon cancer requiring screening colonoscopy GERD (gastroesophageal reflux disease) History of adverse reaction to anesthesia History of colon polyps Insomnia Left knee DJD Lower extremity edema Lymphedema of both lower extremities Melanoma of skin, site unspecified Morbid obesity Nausea & vomiting Pes planus of both feet Right fibular fracture Right knee DJD Right knee pain Rotator cuff tear Bilateral shoulders per pt. report Stomach ulcer Venous insufficiency Surgical History Surgical History S/P ACL reconstruction Left ACL reconstruction S/P ankle ligament repair Left Ankle (per patient) Family History Family History Mother Hypertension Family history of cardiovascular disease Father Patient's father is , Onset Age: 84 Family history of cardiac disorder Carcinoma of colon Sibling Family history of atrial fibrillation Other Arthritis Renal cancer Social History Social History Smoking status: Never smoker Second hand tobacco smoke exposure: No Alcohol intake: current Substance use type: does not use Lack of Transportation: No Lack of Food: Never True Current Housing: I Have Housing Concerned About Future Housing: No Difficulty Paying Gas/Electric Bills: No Difficulty Paying for Meds: No Currently Unemployed: No Education: Bachelor's Degree Difficulty w/ Childcare or Family Care: No Living arrangements: alone Gender identity (if verbalized by the patient): Female Spiritual care concerns: No Anes - Eval Final PreProcedure Day of Procedure 05/18/23 09:56 Patient weight: obese Heart: regular rate and rhythm Lungs: clear to auscultation Airway: Mallampati scale class II Neurological: alert and oriented Last oral intake: >/= 8 hours ASA classification: III Emergent: no Anesthetic plan
[2023-05-18] MEDS: ACETAMINOPHEN 500 MG TABLET 1000 MG PO (10:25)
[2023-05-18] MEDS: KETOROLAC 15 MG/ML VIAL (*BKC) IV PUSH (10:53)
[2023-05-18] MEDS: LACTATED RINGERS 1,000 ML 30 ML IV CONT ×2 (10:53→16:00)
--- NOTE | 2023-05-18 12:00 | WPDHPUPDATE1 ---
History and Physical Update Update Date/Time: 05/18/23 12:00 History and Physical has been reviewed, including an updated exam of the patient. There are NO changes in the patient's condition. Risks, benefits, and alternatives have been discussed and questions answered. Patient agrees to proceed with procedure.
[2023-05-18] MEDS: ceFAZolin 2 GM/D5W 50 ML 2 GM/50 ML BAG IVPB (12:17)
[2023-05-18] MEDS: BUPIVACAINE/EPINEPHRINE 0.5% 50 ML VIAL 30 ML INFILTRATE (13:07)
--- NOTE | 2023-05-18 14:32 | W.PM.PROC2 ---
Procedure Note - Detailed Date of Procedure 05/18/23 Pre-op Diagnosis Left rotator cuff arthropathy Post-op Diagnosis Other (1. Left rotator cuff arthropathy 2. Partial thickness bursal side rotator cuff tear. ) Procedure Performed 1. Arthroscopic left shoulder rotator cuff repair 2. Arthroscopic biceps tenotomy and glenohumeral joint debridement ( labrum and chondroplasty) 3. Subacromial decompression Surgeon Willy León MD Anesthesia General Indications Moderate glenohumeral arthritis and chronic rotator cuff disease.? Essentially moderate rotator cuff arthropathy which is severely symptomatic.? She would like a less invasive option for managing her shoulder pain.? Arthroscopic debridement with biceps tenotomy and subacromial decompression may give modest temporary benefit.? She is hopeful that this will make the shoulder manageable so she can have her knee replacement after her weight loss.? She understands that in the future she would need a reverse total shoulder arthroplasty most likely. We discussed the risks, benefits, and alternatives to surgery. Findings The rotator cuff was intact on the articular side. High-grade bursal sided tear noted. This was just medial to an area of eburnation where the humerus was clearly articulating with the acromion. The tear appeared repairable without any tension insight 2. A single bioabsorbable anchor was placed and a modified Zohaib-Raji repair brought the tendon back down to bone nicely without tension. A modest acromioplasty was performed to avoid any destabilization of the articulation. Moderate to severe glenohumeral arthritis was confirmed and labrum was debrided along with chondroplasty 360?. Biceps tenotomy performed. Minimal fraying of the subscapularis. Description of Procedure Preoperative antibiotics were given. An interscalene block was administered in the preoperative area. The patient was bought brought to the operating room. A general anesthetic was administered. The patient was carefully positioned in the beach chair position. The head and neck were carefully positioned. The non operative extremity was also carefully positioned. The shoulder was prepped and draped in the usual sterile fashion. Examination was performed. Standard posterior and anterior arthroscopic portals were established. Inflow achieved with the arthroscopic pump using saline and epinephrine. The glenohumeral joint was carefully inspected. Her chondroplasty was performed. Labral tissue was debrided with the radiofrequency ablator as well as the shaver. Biceps tenotomy was performed. The articular rotator cuff looked quite good. Attention was turned to the subacromial space. A complete bursectomy was performed. The rotator cuff and footprint were lightly debrided. A modest acromioplasty was performed. The tear configuration was carefully assessed. The high-grade bursal side tear at the supraspinatus was repaired with a single suture anchor at the rotator cuff insertion somewhat medially. This allowed did repair to occur without undue tension, and leave the more lateral footprint and tuberosity free where it is articulating on the acromion. The sutures were tied arthroscopically. The arthroscopic instruments were removed. The wounds were closed with 3-0 Monocryl subcuticular suture and steri strips. There were no complications. A sling was applied and the patient brought to the recovery room. Implants BioComposite Arthrex anchor double loaded. Estimated Blood Loss -10.0 Pathology None sent Complications No immediate complications Condition Stable Disposition PACU [facility] Billing Surgery - Charge Forward: Surgery Billing
--- NOTE | 2023-05-18 14:34 | WPDANESPNB ---
Anes - Peripheral Nerve Block Date/Time: 05/18/23 14:34 I have discussed with the patient/family/POA the placement of a peripheral nerve block for post-operative pain management, including associated risks, benefits, complications, and side effects. Alternative methods of post-operative analgesia were detailed. Questions were solicited and answers provided to the satisfaction of the patient/family/POA. Time-Out: A pre-procedural Time-Out was completed immediately before starting the procedure and confirmed: Patient Identification, Site, Procedure, Patient Position and the Availability of Requisite Equipment. Clinical Indications: Acute post-operative pain management requested by the operative surgeon. Nerve Block Insertion Note Anes-nerve block: supraclavicular Patient position: supine Skin prep: chlorhexidine Needle: 22 gauge, stimulating, insulated echogenic needle. Needle length: 80 mm Technique: ultrasound (in plane) Injectate: bupivacaine 0.25% with epi 5 mcg/ml (20cc) Observations: tolerated well Complications: none Procedure start time:: 1430 Procedure end time:: 143
--- NOTE | 2023-05-18 14:35 | SUR.PHASEI ---
1430 dr dean at bedside to do a nerve block [facility]
[2023-05-18] MEDS: ONDANSETRON INJ 4 MG/2 ML VIAL IV PUSH (15:22)
[2023-05-18] MEDS: SCOPOLAMINE 1.5 MG PATCH TRANSDERM (16:27)
--- NOTE | 2023-05-18 17:44 | SUR.PHASEII ---
Vitals are stable. Patient is unhooked from monitors and waiting for ride at this time.
== END 2023-05-18 17:46 | disposition home or self-care (01) ==
PROVIDERS: PCP Family Medicine; Visit Provider Orthopaedic Surgery
PROC: (CPT 29805; principal; 2023-05-18 12:00)
DX: M75.102 Unspecified rotator cuff tear or rupture of left shoulder, not specified as traumatic (principal); M19.012 Primary osteoarthritis, left shoulder; G89.18 Other acute postprocedural pain; D68.51 Activated protein C resistance; K21.9 Gastro-esophageal reflux disease without esophagitis; E66.01 Morbid (severe) obesity due to excess calories; Z68.41 Body mass index [BMI] 40.0-44.9, adult
CPT/HCPCS: 29827; 29826; 64415; A9270; C1713; J0330; J0690; J1100; J1885; J2250; J2371; J2405; J2704; J3010; J7120

== ENCOUNTER 2023-08-07 13:15 | Outpatient (CLI) | payer MEDICARE, SELFPAY ==
[2023-08-07 18:38] LABS: Hematocrit 40.8 % (37.0-47.0); Hemoglobin 12.4 g/dL (12.0-15.0); Mean Corpuscular HGB Conc 30.4 g/dl (32-36); Mean Corpuscular Hemoglobin 25.5 pg (26-34); Mean Corpuscular Volume 83.8 fl (80-100); Mean Platelet Volume 10.1 fl (7.4-10.4); Platelet Count Result 292 k/mm3 (150-375); Red Blood Count 4.87 M/mm3 (4.2-5.4); Red Cell Distribution Width 17.1 % (11.5-14.5); White Blood Count 10.8 K/mm3 (4.5-10.0)
[2023-08-07 18:45] LABS: Alanine Aminotransferase 50 U/L (6-35); Alkaline Phosphatase 182 U/L (38-126); Anion Gap 6 mmol/L (8-16); Aspartate Amino Transferase 38 U/L (14-36); Bilirubin,Total 0.7 mg/dL (0.2-1.3); Blood Urea Nitrogen 15 mg/dL (7-17); Calcium 9.2 mg/dL (8.4-10.2); Carbon Dioxide 27 mmol/L (22-30); Chloride 105 mmol/L (98-107); Cholesterol 203 mg/dL (0-200); Estimated Glomerular Filt Rate > 60; Glucose 127 mg/dL (65-110); HDL Direct 69 mg/dL; Potassium 4.3 mmol/L (3.4-5.0); Sodium 138 mmol/L (137-145); Triglycerides 58 mg/dL (<150)
[2023-08-07 18:56] LABS: LDL Cholesterol Direct 97 mg/dL
[2023-08-07 19:13] LABS: Thyroid Stimulating Hormone 0.862 uIU/mL (0.465-4.680)
[2023-08-07 19:17] LABS: Appearance Urine Cloudy (Clear); Bacteria Urine 4+ /hpf; Bilirubin Urine Negative (Negative); Blood Urine Trace (Negative); Color Urine Yellow (Yellow); Glucose Urine UA Negative (Negative); Ketones Urine Negative (Negative); Leukocyte Esterase Ur 2+ LEU/UL (NEGATIVE); Nitrate Urine Negative (Negative); Non Pathogenic Casts 0-2; Protein Urine Negative (Negative); Squamous Epithelial Cell Urine None seen /hpf (Few); Urobilinogen Urine 0.2 mg/dL (<2.0); WBC Urine >100 /hpf (0-3); pH Urine 5.5 (5.0-9.0)
[2023-08-07 19:27] LABS: Add Urine Microscopic? YES
== END 2023-08-07 13:16 | disposition home or self-care (01) ==
PROVIDERS: PCP Family Medicine; Visit Provider Family Medicine
DX: E78.5 Hyperlipidemia, unspecified (principal); R53.83 Other fatigue; E66.01 Morbid (severe) obesity due to excess calories; G47.00 Insomnia, unspecified
CPT/HCPCS: 36415; 80053; 80061; 81001; 84443; 85027

== ENCOUNTER 2023-08-13 10:15 | Outpatient (RCR) | payer MEDICARE, SELFPAY ==
[2023-07-02 10:41] VITALS: BP_SYST 70
--- NOTE | 2023-07-02 11:54 | OPREHPOC ---
Outpatient Therapy Plan of Care This is a Multidisciplinary Plan of Care that may contain components documented by all disciplines (PT, OT, and ST.) PT Problem 1 PT Problem #1 Knowledge Deficit PT Goal 1 Goal Pt to be IND with issued HEP Target Visit 16 PT Problem 2 PT Problem #2 Pain PT Goal 1 Goal Pt to report L shoulder pain no greater than 4/10 in the last week Target Visit 16 PT Goal 2 Goal Pt to report sleeping for 6 hours without being woken d/t pain. Target Visit 16 PT Problem 3 PT Problem #3 Impaired Range of Motion PT Goal 1 Goal Pt to increase active shoulder flexion to 100 deg Target Visit 16 PT Goal 2 Goal Pt to increase active shoulder abduction to 100 deg Target Visit 16 PT Problem 4 PT Problem #4 Impaired Strength PT Goal 1 Goal Pt to demonstrate shoulder strength grossly 4/5 Target Visit 16 PT Goal 2 Goal Pt to be able to life 5 lb overhead Target Visit 16 PT Problem 5 PT Problem #5 Impaired Functional Mobil PT Goal 1 Goal Pt to report a 75% improvement in overall functional Target Visit 16 PT Goal 2 Goal Pt to be able to get dressed without an increase in pain.
--- NOTE | 2023-07-02 11:54 | PTOPEVAL1 ---
Assessment and note entered by Biju Poon, PT, DPT Evaluation Information Assessment Status Evaluation Diagnosis L RTC repair and biceps debridement Onset 05/18/23 Subjective Information Pt states she had a L TRC repair with a biceps debridement 6 weeks ago. She states recovery has been pretty slow and painful. She was in an immobilizer for 6 weeks. She states pain is her biggest complaint. She reports general movement makes the pain worse and sleeping is the hardest. Pt is L handed. Pt states her pain goal is to get back to normal. Reported Pain Level Pain Score 2: Self Report Assessment PT Clinical Summary Edie presents to therapy today for her initial evaluation following a L TRC repair with a biceps debridement on 05/18/23. Today she demonstrates significant limitations in her active ROM, active shoulder flexion is 40 deg and she demonstrates no active shoulder abduction, both limited by pain. Her passive ROM is also limited by pain. Skilled therapy services are indicated to progress ROM, strength, and function, to manage pain, and to return to baseline mobility. Plan of Care Interventions Electrical Stimulation,Hot Pack/Cold Pack,Manual Therapy,Neuro Re-education,Patient/Caregiver Educati,Therapeutic Activities,Therapeutic Exercise PT Services Indicated Yes Treatment Frequency and 2x/wk for 16 visits Duration These treatments will address the objective and functional deficits as defined above. The patient will be advanced safely and appropriately in order for the patient to progress towards his/her prior level of function. Additional exercises will be introduced and as well as a comprehensive home exercise program upon discharge, if needed, ?to ensure carryover of functional gains achieved in the clinic. This treatment plan has been reviewed and agreement upon by the patient.
--- NOTE | 2023-07-18 10:51 | PCPTNOTE ---
Patient called to cancel this date due to illness.
--- NOTE | 2023-07-27 11:05 | PCPTNOTE ---
Patient canceled due to having family coming into town.
[2023-07-30 09:54] VITALS: BP_SYST 120
--- NOTE | 2023-07-30 10:51 | PTOPPROG ---
Assessment and note entered by Biju Poon, PT, DPT Evaluation Information Assessment Status Progress Diagnosis L RTC repair and biceps debridement Onset 05/18/23 Subjective Information Pt states her ROM and pain has improved. She states reaching behind her back and out to the side is still painful and limited, but this has still improved. Pt reports 70% improvement in overall function. She states is now able to brush her hair, write, eat, ect. Assessment PT Clinical Summary Edie presents to therapy today for her progress report following 4 visits of skilled therapy following a L TRC repair with a biceps debridement on 05/18/23. Today she continues to demonstrates significant limitations in her active ROM, active shoulder flexion is 62 deg and active shoulder abduction to 36 deg. Her passive ROM is progressing well but strength continues to be limited. Continuation of skilled therapy services are indicated to continue progressing towards therapy goals and surgical protocol, to improve strength and ROM, and to return to PLOF. Plan of Care Interventions Electrical Stimulation,Hot Pack/Cold Pack,Manual Therapy,Neuro Re-education,Patient/Caregiver Educati,Therapeutic Activities,Therapeutic Exercise PT Services Indicated Yes Treatment Frequency and 2x/wk for 8 visits Duration These treatments will address the objective and functional deficits as defined above. The patient will be advanced safely and appropriately in order for the patient to progress towards his/her prior level of function. Additional exercises will be introduced and as well as a comprehensive home exercise program upon discharge, if needed, ?to ensure carryover of functional gains achieved in the clinic. This treatment plan has been reviewed and agreement upon by the patient.
--- NOTE | 2023-08-15 08:44 | PTOPDC ---
Assessment and note entered by Biju Poon, PT, DPT Evaluation Information Assessment Status Discharge - Pt Not Present Diagnosis L RTC repair and biceps debridement Onset 05/18/23 Subjective Information Pt cancelled all of her remaining appointments today. She states she is having other medical concerns and in order for these to be addressed she has to get a lot of dental work done. Pt states she has also spoken with her surgeon. Reported Pain Level Pain Score 1: Self Report Assessment PT Clinical Summary Pt completed 7 visits of skilled therapy from 07/02 to 08/13/23. She will be discharged at this time per request.
== END 2023-08-15 10:06 | disposition home or self-care (01) ==
LOC: ANHGOSHPT 10:15
PROVIDERS: PCP Family Medicine; Visit Provider Orthopaedic Surgery
DX: Z48.89 Encounter for other specified surgical aftercare (principal); G47.00 Insomnia, unspecified; E78.5 Hyperlipidemia, unspecified; E66.01 Morbid (severe) obesity due to excess calories; R53.83 Other fatigue
CPT/HCPCS: 36415; 80053; 80061; 81001; 84443; 85027; 97110; 97112; 97161; 97530

== ENCOUNTER → 2023-08-15 07:57 | Outpatient (CLI) | payer MEDICARE, SELFPAY ==
--- NOTE | ~2023-08-15 | US_ITS ---
Limited Abdominal Sonogram: Real-time sonographic imaging of the right upper quadrant was performed. Clinical History: Abdominal pain Findings: The liver appears normal with no evidence of mass lesion or bile duct dilatation. Main por morro vein demonstrates normal direction of flow. The gallbladder is well distended, and contains echog enic, shadowing gallstone. No gallbladder wall thickening. The common bile duct measures 5 mm. The v isualized pancreas, aorta, and IVC are unremarkable. Impression: Cholelithiasis. Reviewed, dictated and finalized at location M. Impression: Cholelithiasis.
== END ==
PROVIDERS: PCP Family Medicine; Visit Provider Family Medicine
DX: R10.9 Unspecified abdominal pain (principal); K80.20 Calculus of gallbladder without cholecystitis without obstruction
CPT/HCPCS: 76705

== ENCOUNTER 2023-09-03 09:36 | Outpatient (CLI) | payer MEDICARE, SELFPAY ==
--- NOTE | ~2023-09-03 | NM_ITS ---
EXAMINATION: NM hepatobiliary wo pharm DATE: 09/03/2023 12:55 INDICATION: Right upper quadrant abdominal pain COMPARISON: None. TECHNIQUE: 0.7 mCi Tc-99m mebrofenin (Choletec) was administered intravenously. Scintigraphic images of the abdomen were obtained for one hour. At the 1 hour time point, the patient drank 8 oz Ensure, and imaging was continued for 60 minutes. Gallbladder ejection fraction was calculated by the technol ogist. FINDINGS: There is normal clearance of radiotracer from the blood pool. There is homogeneous tracer u ptake by the liver. Activity progresses to the bowel and gallbladder. The gallbladder ejection fract ion (GBEF) is 72%. Note that with this technique, normal GBEF >= 33%. IMPRESSION: 1. Normal hepatobiliary scan Reviewed, dictated and finalized at location A.
== END 2023-09-03 09:37 | disposition home or self-care (01) ==
LOC: ANHIMG 09:39
PROVIDERS: PCP Family Medicine; Visit Provider Physician Assistant
DX: R10.11 Right upper quadrant pain (principal); K80.20 Calculus of gallbladder without cholecystitis without obstruction
CPT/HCPCS: 78226; A9537

== ENCOUNTER 2023-12-31 13:32 | Outpatient (CLI) | payer MEDICARE, SELFPAY ==
--- NOTE | ~2023-12-31 | DEXA_ITS ---
Bone Density Report Name: JENNA MUNOZ Age: 73 Sex: Female Ethnicity: White Date of : 1950 Indication: postmenopausal; screening for osteoporosis; height loss; Referring Provider: ROBERT MEZA Study: Bone densitometry was performed. Exam Date: December 31, 2023 Accession number: [id number] Bone Density: Region BMD T-score Z-score Classification AP Spine(L1-L4) 1.067 0.2 2.4 Normal Femoral Neck (Left) 0.743 -1.0 0.9 Normal Total Hip (Left) 0.912 -0.2 1.3 Normal Femoral Neck (Right) 0.715 -1.2 0.7 Osteopenia Total Hip (Right) 0.892 -0.4 1.2 Normal Total Hip Mean 0.902 -0.3 1.3 Normal World Health Organization criteria for BMD impression classify patients as: Normal (T-score at or above -1.0), Osteopenia (T-score between -1.0 and -2.5), or Osteoporosis (T-score at or below -2.5). 10-year Fracture Risk(1): Major Osteoporotic Fracture 8.1% Hip Fracture 0.9% Reported Risk Factors: [place] (), Neck BMD=0.715, BMI=44.1 (1) FRAX(R) Version 3.08. Fracture probability calculated for an untreated patient. Fracture probability may be lower if the patient has received treatment. Clinical Information Provided by Patient: Has used the following medications: Vitamin D Patient maximum height was 66 Menopause Age: 52 No regular weight bearing exercise Drinks caffeinated beverages Onset of menses at age 14 Number of children 0 Impression: The patient has low bone mass, based on the Right Femoral Neck T-score. The patient has an estimated ten-year risk of hip fracture of 0.9% and an estimated ten-year risk of major fracture of 8.1%, based on the WHO FRAX algorithm. Discussion: BONE DENSITY IS LOW AT ONE OR MORE SKELETAL SITES. This patient's lowest T-score is low at one or more skeletal sites. It meets the World Health Organization's (WHO) criteria for ?low bone mass? (T-score between -1.0 and -2.5). The patient's 10-year risk of fracture as calculated by FRAX is less than the threshold where pharmacological therapy is recommended by the National Osteoporosis Foundation (NOF). However, all treatment decisions require clinical judgment and consideration of individual patient factors, including patient preferences, comorbidities, previous drug use, risk factors not captured in the FRAX model (e.g., frailty, falls, vitamin D deficiency, increased bone turnover, interval significant decline in bone density) and possible under or overestimation of fracture risk by FRAX. The patient should follow a healthful lifestyle (good nutrition with adequate calcium and vitamin D, and appropriate weight-bearing exercise). Follow-Up: Consider repeating this study in 2 to 3 years to reassess this patient's status, or sooner if there is some new clinical indication. Reported by: SELAM
--- NOTE | ~2023-12-31 | MM_ITS ---
EXAMINATION: MM screening roslyn BI w yoli HISTORY: Screening TECHNIQUE: Craniocaudal and mediolateral oblique 3-D tomosynthesis images were obtained and synthetic 2-D images were generated. CAD analysis was submitted and interpreted. COMPARISON: No prior mammogram is available for comparison at this institution. BREAST PARENCHYMAL COMPOSITION: Not dense: There are scattered areas of fibroglandular density. FINDINGS: There is a cluster of small masses in the lower inner quadrant of the right breast anterior ly. There is no mammographic evidence for malignancy in the left breast. There are benign breast calc ifications. IMPRESSION: 1. Cluster of small masses lower inner quadrant of the right breast anteriorly. 2. Additional mammographic views and possible breast ultrasound are recommended. BI-RADS Category 0: Incomplete: Needs additional imaging evaluation. Reviewed, dictated and finalized at location A. MENT RESTORER IMPRESSION: 1. Cluster of small masses lower inner quadrant of the right breast anteriorly. 2. Additional mammographic views and possible breast ultrasound are recommended . BI-RADS Category 0: Incomplete: Needs additional imaging evaluation.
== END 2023-12-31 13:33 | disposition home or self-care (01) ==
LOC: ANHIMG 13:35
PROVIDERS: PCP Family Medicine; Visit Provider Family Medicine
DX: Z12.31 Encounter for screening mammogram for malignant neoplasm of breast (principal); Z78.0 Asymptomatic menopausal state; R92.8 Other abnormal and inconclusive findings on diagnostic imaging of breast; M85.851 Other specified disorders of bone density and structure, right thigh
CPT/HCPCS: 77063; 77067; 77080

== ENCOUNTER 2024-01-23 10:14 | Outpatient (CLI) | payer MEDICARE, SELFPAY ==
--- NOTE | ~2024-01-23 | MMUS_ITS ---
EXAMINATION: MM diagnostic roslyn RT w yoli, US breast RT limited HISTORY: Cluster of small masses reported in the anterior lower inner quadrant of the right breast on screening mammogram of December 31, 2023 TECHNIQUE: Additional 3-D tomosynthesis images of the right breast were performed and synthetic 2-D i mages were generated. CAD analysis was submitted and interpreted. High resolution targeted lower inne r and outer quadrant right breast ultrasound was performed. COMPARISON: December 31, 2023 bilateral screening mammogram FINDINGS: MAMMOGRAPHIC FINDINGS: Circumscribed approximately 3 x 5.5 mm mass is noted in the lower inner right breast (MLO Tomosynthes is image 53/79) Impression 1.5 x 4.6 mm circumscribed opacity is noted in the lower outer quadrant (MLO Tomosynthesis image 18/79). Irregular approximately 2.5 x 5.3 mm relatively high density irregular mass is noted more posteriorly in the lower inner quadrant (17/ mL Tomosynthesis image). No suspicious mass is noted otherwise. ULTRASOUND: 4:00 3 cm from nipple: Parallel circumscribed 4.3 x 3.1 x 5.5 mm complex lesion without internal vasc ularity on color flow signal, with some posterior shadowing 7:00 5 cm from nipple: A left defined and typed parallel irregular hypoechoic approximately 2.5 mm ma ss with posterior shadowing. Ultrasound-guided biopsy is recommended. IMPRESSION: 1. Suspicious abnormalities of right breast at 4:00 3 cm from nipple and 7:00 5 cm from nipple 2. Consider ultrasound-guided biopsy of both of these lesions BI-RADS category 4, suspicious findings. Reviewed, dictated and finalized at location A. Impression 1.5 x 4.6 mm circumscribed opacity is noted in the lower outer quadr ant (MLO Tomosynthesis image 18/79). Irregular approximately 2.5 x 5.3 mm relatively high density irregular mass is noted more posteriorly in the lower inner quadrant (17/79 mL Tomosynthesis imag e). No suspicious mass is noted otherwise. ULTRASOUND: 4:00 3 cm from nipple: Parallel circumscribed 4.3 x 3.1 x 5.5 mm complex lesion without internal vascularity on color flow signal, with some posterior shadowi ng 7:00 5 cm from nipple: A left defined and typed parallel irregular hypoechoic a pproximately 2.5 mm mass with posterior shadowing. Ultrasound-guided biopsy is recommended. IMPRESSION: 1. Suspicious abnormalities of right breast at 4:00 3 cm from nipple and 7:00 5 cm from nipple 2. Consider ultrasound-guided biopsy of both of these lesions BI-RADS category 4, suspicious findings. Impression 1.5 x 4.6 mm circumscribed opacity is noted in the lower outer quadr ant (MLO Tomosynthesis image 18/). Irregular approximately 2.5 x 5.3 mm relatively high density irregular mass is noted more posteriorly in the lower inner quadrant ( mL Tomosynthesis imag e). No suspicious mass is noted otherwise. ULTRASOUND: 4:00 3 cm from nipple: Parallel circumscribed 4.3 x 3.1 x 5.5 mm complex lesion without internal vascularity on color flow signal, with some posterior shadowi ng 7:00 5 cm from nipple: A left defined and typed parallel irregular hypoechoic a pproximately 2.5 mm mass with posterior shadowing. Ultrasound-guided biopsy is recommended.
== END 2024-01-23 10:15 | disposition home or self-care (01) ==
LOC: ANHIMG 10:16
PROVIDERS: PCP Family Medicine; Visit Provider Family Medicine
DX: R92.8 Other abnormal and inconclusive findings on diagnostic imaging of breast (principal)
CPT/HCPCS: 76642; 77061; 77065; G0279

== ENCOUNTER 2024-02-05 10:03 | Outpatient (CLI) | payer MEDICARE, SELFPAY ==
--- NOTE | ~2024-02-05 | MMUS_ITS ---
EXAMINATION: US GUIDED NEEDLE BIOPSY DATE: 02/05/2024 12:51 CDT INDICATION: Suspicious sonographic abnormality of the right breast at 4:00 3 cm from nipple and 7:00 5 cm from nipple TECHNIQUE AND FINDINGS: The risks and potential benefits of the procedure were discussed with the patient, and written inform ed consent was obtained. Timeout procedure was performed. After sterile preparation of the right lor st, 1% lidocaine was utilized for local anesthesia. A 12 G spring-loaded biopsy gun needle was advanced to the edge of the 7:00 lesion from a medial appr [facility] utilizing sonographic guidance. A total of 4 tissue core samples were obtained through the lesi on. An Inrad tissue marker clip was then placed at the biopsy site. Hemostasis was achieved. A steri le bandage was applied. A 12-gauge spring-loaded biopsy gun needle was advanced subsequently into the 4:00 lesion from an inf erolateral approach using sonographic guidance. 3 tissue core specimens were obtained. An) tissue mar ker clip was placed at the biopsy site. Hemostasis was achieved. A sterile bandage was applied. The patient tolerated procedure well and there was no evidence of immediate complication. The patien t was given verbal instructions prior to departing from the department. A two view mammogram was perf ormed to document tissue marker clip placement. The tissue samples were submitted to surgical patholo gy for histologic analysis. IMPRESSION: Ultrasound-guided biopsy of right 7:00 and 4:00 lesions with biopsy marker placement. Please refer to pathology report for histologic analysis. Reviewed, dictated and finalized at Location A. Reviewed, dictated and finalized at location A. IMPRESSION: Ultrasound-guided biopsy of right 7:00 and 4:00 lesions with biopsy marker plac ement. Please refer to pathology report for histologic analysis. IMPRESSION: Ultrasound-guided biopsy of right 7:00 and 4:00 lesions with biopsy marker plac ement. Please refer to pathology report for histologic analysis.
== END 2024-02-05 10:04 | disposition home or self-care (01) ==
PROVIDERS: PCP Family Medicine; Visit Provider Physician Assistant
DX: R92.8 Other abnormal and inconclusive findings on diagnostic imaging of breast (principal); N63.10 Unspecified lump in the right breast, unspecified quadrant
CPT/HCPCS: 19083; 19084; 88305; A4648